=== PATIENT | male | born 1930 | race Caucasian/White ===

== ENCOUNTER 2016-08-01 12:43 | Outpatient (CLI) | payer MEDICARE ==
[~2016-08-01] VITALS: Ht 180.3 cm; Wt 103.2 kg
[2016-08-01] VITALS (12 sets, daily range): BP systolic 132–173; BP diastolic 85–100; PULSE 64–70; RESP 16–20; TEMP 97.2; O2SAT 92–97; Ht 180.3 cm; Wt 103.2 kg
[~2016-08-01 12:43] MED LIST: ASPI81TA2 PO; FURO20TA4 PO; HYDR-3989 PO; INSU100I21 SQ; INSU100I3 SQ; LOSA100T44 PO; NITR0.4T39 SL
--- NOTE | 2016-08-01 12:50 | NUR ---
ADMIT PT AMBULATORY TO ROOM 116.
[2016-08-01] MEDS: NORMAL SALINE 1,000 ML IV SCH (13:44)
--- NOTE | 2016-08-01 14:39 | NUR ---
CM CM IN TO VISIT PATIENT, HE IS A&O. NO FAMILY IS PRESENT. PATIENT PLANS TO DISCHARGE HOME, DENIES DISCHARGE NEEDS. CM CONTACT INFORMATION PROVIDED. ANN-MARIE SIGNED. LACE SCORE IS 3, NO FURTHER FOLLOW UP IS NEEDED. Addendum: 08/01/16 at 1440 by MATTHEW MAYERS RN Amended: Links added.
[2016-08-01] MEDS ORDERED: HYDR25TA PO (14:44)
[2016-08-01] MEDS ORDERED: TAMS0.4C47 PO (14:44)
[2016-08-01 14:54] LABS: BASOPHILS % (AUTO) 0.6 % (0-2); EOSINOPHILS # (AUTO) 0.1 T/MM3 (0-0.5); EOSINOPHILS % (AUTO) 1.8 % (0-4); HCT - HEMATOCRIT 42.3 % (41-53); HGB - HEMOGLOBIN 14.2 GM/DL (13.5-17.5); IMMATURE GRANULOCYTE # (AUTO) 0.02 T/MM3 (0.00-0.03); IMMATURE GRANULOCYTE % (AUTO) 0.3 % (0.0-0.5); LYMPHOCYTES # (AUTO) 1.2 T/MM3 (1-4.8); MEAN CORPUSCULAR HGB 32.1 UUG (26-34); MEAN CORPUSCULAR HGB CONC(MCHC 33.6 GM/DL (31-37); MEAN CORPUSCULAR VOLUME 95.5 UM3 (80-100); MONOCYTES # (AUTO) 0.7 T/MM3 (0-0.8); MONOCYTES % (AUTO) 10.4 % (0-9.0); NEUTROPHILS #(AUTO)-ABSOLUTE 4.5 T/MM3 (1.8-7.7); NEUTROPHILS % (AUTO) 68.9 % (33-66); RED BLOOD COUNT 4.43 M/MM3 (4.50-5.90); WBC - WHITE BLOOD COUNT 6.5 T/MM3 (4.5-11.0)
[2016-08-01 15:02] LABS: ANION GAP 13 MEQ/L (5-15); BUN/CREATININE RATIO 18 RATIO (6-26); CALCIUM 9.2 MG/DL (8.4-10.2); CHLORIDE 104 MEQ/L (98-107); CO2 - CARBON DIOXIDE 25 MEQ/L (22-30); CREATININE 1.7 MG/DL (0.8-1.5); GLOMERULAR FILTRATION RATE 38; GLUCOSE 103 MG/DL (75-110); SODIUM 142 MEQ/L (134-144)
[2016-08-01] MEDS ORDERED: MIDAZOLAM 2mg/2ml INJECTION ONE (16:27)
[2016-08-01] MEDS ORDERED: CEFAZOLIN 1 GRAM INJECTION ONE ×2 (16:27→16:32)
[2016-08-01] MEDS ORDERED: FENTANYL 100mcg/2ml INJECTION ONE (16:27)
[2016-08-01] MEDS ORDERED: LIDOCAINE 1% (10mg/ml) 30ml SDV ONE ×2 (16:28→16:29)
[2016-08-01] MEDS ORDERED: SALINE FLUSH 10ml SYRINGE ONE (16:28)
[2016-08-01] MEDS ORDERED: BACITRACIN INJ. 50,000 UNITS VL ONE (16:28)
--- NOTE | 2016-08-01 16:28 | NUR ---
CATH PT TO [employer] LA[employer]CH COMMANDER PER CATH CART.
[2016-08-01] MEDS ORDERED: WATER FOR INJECTION 20 ML ONE (16:29)
[2016-08-01] MEDS ORDERED: LABETALOL 20mg/4ml INJECTION IV ONE (17:08)
--- NOTE | 2016-08-01 17:25 | NUR ---
RETURN TO UNIT RETURNS TO ROOM 116 VIA CART FROM IRRIGATION SERVICE TECHNICIAN. PATIENT TRANSFERRED FROM CART TO BED VIA SLIDEBOARD AND ASSIST X2 FROM NURSING STAFF. PATIENT ALERT AND ORIENTED X2 UP ARRIVAL FROM IRRIGATION SERVICE TECHNICIAN. O2 RA. IVF INFUSING. DRESSING TO LEFT UPPER CHEST APPEARS CLEAN, DRY, AND INTACT. BED IN LOWEST POSITION, CALL LIGHT WITHIN REACH, SIDE RAILS UP X2, AND BED ALARM ACTIVATED.
[2016-08-01] MEDS ORDERED: ACETAMINOPHEN 325 MG TABLET PO PRN (18:00)
[2016-08-01] MEDS ORDERED: MAG-AL + SIM LIQUID 30 ML UDC PO PRN (18:00)
[2016-08-01] MEDS ORDERED: HYDROCODONE/APAP 5 mg/325 mg TABLET PO PRN (18:00)
[2016-08-01] MEDS ORDERED: NITROGLYCERIN 0.4 MG SUBLINGUAL TABLET SL PRN (18:00)
[2016-08-01] MEDS ORDERED: BISACODYL 5 MG E.C. TABLET PO PRN (18:00)
[2016-08-01] MEDS ORDERED: ACETAMINOPHEN/CODEINE 300mg/30mg TABLET PO PRN (18:00)
--- NOTE | 2016-08-01 18:00 | NUR ---
IV ANTIBIOTIC NOTED LAST ADMINISTERED DOSE WAS AT 1632. WILL DELAY THIS "SCHEDULED" DOSE (PER EMAR) AND MENTION TO CHRISTA PAYNE.
--- NOTE | 2016-08-01 19:27 | NUR ---
STATUS PT SITTING UP, EATING SOLID FOOD FOR EVENING MEAL. DENIES DISCOMFORT. INCISION SITE COVERED WITH DRESSING THAT IS D&I. SEE VITAL SIGNS DOCUMENTATION.
[2016-08-01] MEDS ORDERED: POM TAMSULOSIN 0.4 MG CAPSULE PO SCH (22:00)
[2016-08-01] MEDS ORDERED: INSULIN DETEMIR 21 UNIT SQ SCH (22:00)
[2016-08-02] VITALS: BP 149/90; PULSE 71; RESP 20; TEMP 96.5; O2SAT 96
[2016-08-02] MEDS: CEFAZOLIN 1 G in NORMAL SALINE 100 ML IV SCH ×2 (00:06→08:34)
[2016-08-02] MEDS: NORMAL SALINE 1,000 ML IV SCH ×2 (03:35→12:20)
[2016-08-02 03:54] VITALS: BP 138/90; PULSE 70; RESP 20; TEMP 96.6; O2SAT 97
--- NOTE | 2016-08-02 03:57 | NUR ---
SUMMARY, HAS BEEN ALERT AND ORIENTED X3. UP TO BATHROOM WITH ASSIST OF 1 TO SIT UP IN BED AND LIE FEET BACK UP INTO BED. USING CANE WHEN UP. HAVING DIFFCULTY STARTING TO URINATE, NOTHING NEW TO PATIENT. DENIES CHEST PAIN, SOA. C/O LEFT SHOULDER DISCOMFORT, NO OTHER SYMPTOMS. DENIED NEED FOR PAIN MEDS. HAS BEEN ROTATING SELF IN BED. BED ALARM ON. TAKING BLOOD SUGARS WHEN PT REQUESTS OR WHEN MED DUE. BP IMPROVED THIS A.M. FROM LAST EVENING, SEE VITALS.
[2016-08-02 07:41] VITALS: BP 161/90; PULSE 70; RESP 17; TEMP 97.8; O2SAT 96
[2016-08-02] MEDS ORDERED: INSULIN ASPART 15 UNIT SQ SCH ×2 (07:45→17:15)
[2016-08-02] MEDS ORDERED: HYDROCHLOROTHIAZIDE 25 MG PO SCH (08:00)
--- NOTE | 2016-08-02 08:48 | DI ---
Indication: ITS.REASON: ppm PROCEDURE: CHEST 1 VIEW: Encounter: Initial Comparison: August 05, 2015 Findings: Left cardiac pacemaker again seen with a right ventricular lead. No evidence of lead fracture or discontinuity. The right changes again seen in both lung bases. No acute pneumonia, pleural effusion or pneumothorax. Cardiomediastinal contours and pulmonary vascularity are unchanged. Impression: No pneumothorax. .
[2016-08-02] MEDS ORDERED: LOSARTAN 100 MG PO SCH (09:00)
[2016-08-02] MEDS ORDERED: ASPIRIN 81 MG CHEWABLE TABLET PO SCH (09:00)
[2016-08-02] MEDS ORDERED: MINOCYCLINE 100 MG CAPSULE PO SCH (09:00)
--- NOTE | 2016-08-02 09:08 | DI ---
INDICATION: ITS.REASON: ppm PROCEDURE: CHEST 2-VIEWS UPRIGHT (PA \T\ LAT) Encounter: Initial COMPARISON: August 01, 2016 FINDINGS: Left single lead cardiac pacemaker is stable in position. No lead fracture or dislodgment. Lungs are stable with some fibrotic changes and mild pulmonary vascular congestion. No pneumothorax seen. Heart size and mediastinal contours are stable. Impression: Stable position of the left pacemaker without evidence of pneumothorax. .
[2016-08-02] MEDS ORDERED: MINO100C43 PO (12:44)
[2016-08-02 12:50] VITALS: BP 144/82; PULSE 82; RESP 18; TEMP 95.5; O2SAT 98
--- NOTE | 2016-08-02 13:52 | NUR ---
DISMISSAL PATIENT DISMISSED TO HOME FOR SELF-CARE TO THE MAIN [facility]OS[facility] ENTRANCE VIA WHEELCHAIR. PT STABLE AND ON ROOM AIR AT TIME OF DISMISSAL. PATIENT'S SON WAS THE VIDEO COORDINATOR HOME. PERSONAL BELONGINGS RETURNED PRIOR TO D/C. IV CATHETER REMOVED AND IV CATHETER TIP INTACT. D/C INSTRUCTIONS REVIEWED PRIOR TO D/C. TOPICS DISCUSSED INCLUDED: NEW MEDICATIONS, S/S TO REPORT, INCISION CARE, AND FOLLOW UP APPOINTMENTS.
--- NOTE | 2016-08-02 15:47 | NUR ---
DWAYNE CM IN TO VISIT WITH PT. HE IS ALERT AND ORIENTED. HIS IS PRESENT. PT PLANS TO DC HOME. THEY DENY DC NEEDS. Addendum: 08/02/16 at 1547 by JERROD MALDONADO RN Amended: Links added.
== END 2016-08-02 13:52 | disposition home or self-care (01) ==
LOC: CATH 12:43 → SRG 12:44 → CATH 08-02 13:52
PROVIDERS: ATTEND Internal Medicine Cardiovascular Disease
DX: Z45.010 Encounter for checking and testing of cardiac pacemaker pulse generator [battery] (principal); I70.203 Unspecified atherosclerosis of native arteries of extremities, bilateral legs; I48.0 Paroxysmal atrial fibrillation; I25.10 Atherosclerotic heart disease of native coronary artery without angina pectoris; I12.9 Hypertensive chronic kidney disease with stage 1 through stage 4 chronic kidney disease, or unspecified chronic kidney disease; N18.9 Chronic kidney disease, unspecified; E11.22 Type 2 diabetes mellitus with diabetic chronic kidney disease; E78.2 Mixed hyperlipidemia; I65.29 Occlusion and stenosis of unspecified carotid artery; R07.2 Precordial pain; Z79.4 Long term (current) use of insulin; Z79.82 Long term (current) use of aspirin; Z79.899 Other long term (current) drug therapy
CPT/HCPCS: 33227; 71010; 71020; 80048; 82948; 85025; 93005; A9270; C1786; J0690; J2250; J3010; J7030; J7050